=== PATIENT | female | born 1995 | race Caucasian/White ===

== ENCOUNTER 2019-03-29 17:13 | Emergency (ER) | payer OTHER ==
--- NOTE | 2019-03-29 18:18 | EDM.PDOC ---
ED HPI GENERAL MEDICAL PROBLEM - General Chief Complaint: Lower Extremity Injury/Pain Stated Complaint: WC HURT KNEE Time Seen by Provider: 03/29/19 18:10 Source of Information: Reports: Patient, RN Notes Reviewed History Limitations: Reports: No Limitations - History of Present Illness INITIAL COMMENTS - FREE TEXT/NARRATIVE: 23-year-old female presents emergency department today complaint of left knee pain, she does have a history history of ACL repair on that side she was at work doing some training injured herself with a twisting motion on the left knee now she has difficulty bearing weight. Pain is greatest on the medial aspect Left Knee Pain Score (Numeric/FACES): 6 - Related Data Allergies Allergy/AdvReac Type Severity Reaction Status Date / Time No Known Allergies Allergy Verified 03/29/19 18:04 Home Meds: Home Meds NK [No Known Home Meds] 03/29/19 [History] Past Medical History Psychiatric History: Reports: Depression - Past Surgical History HEENT Surgical History: Reports: Myringotomy w Tube(s), Other (See Below) Other HEENT Surgeries/Procedures: facial plastic surgery Musculoskeletal Surgical History: Reports: Arthroscopic Knee Social & Family History - Tobacco Use Smoking Status *Q: Never Smoker - Recreational Drug Use Recreational Drug Use: No Review of Systems - Review of Systems Review Of Systems: See Below Musculoskeletal: Reports: Joint Pain (Left knee) Skin: Reports: No Symptoms Neurological: Reports: No Symptoms ED EXAM, GENERAL - Physical Exam Exam: See Below Free Text/Narrative:: Examination of the left knee I don't appreciate any erythema or edema she is tender along the joint line medial aspect there is pain with valgus maneuver no pain with varus maneuver anterior drawer and Bebeto's are both negative Exam Limited By: No Limitations General Appearance: Alert, WD/WN, No Apparent Distress Respiratory/Chest: No Respiratory Distress Course - Vital Signs Last Recorded V/S: Last Vital Signs Temp 97.6 F 03/29/19 18:03 Pulse 80 03/29/19 18:03 Resp 22 H 03/29/19 18:03 BP 152/96 H 03/29/19 18:03 Pulse Ox 99 03/29/19 18:03 Departure - Departure Time of Disposition: 19:11 Disposition: Home, Self-Care 01 Condition: Fair Clinical Impression: Strain of left knee Qualifiers: Encounter type: initial encounter Qualified Code(s): S86.912A - Strain of unspecified muscle(s) and tendon(s) at lower leg level, left leg, initial encounter - Discharge Information Referrals: PCP,None [Primary Care Provider] - Forms: ED Department Discharge Additional Instructions: use ibuprofen for baseline pain control, use hydrocodone for breakthrough pain, Please followup with your primary care provider in 3-5 days if not better, please call return to the emergency department with worsening of symptoms. - Assessment/Plan Plan: Assessment Acuity = acute Site and laterality = left knee strain Etiology = secondary to twisting injury Manifestations = difficulty with ambulation Location of injury = work Lab values = x-ray was negative for any acute fracture Plan She is placed in an Vahid wrap and crutches consultation with orthopedics is set up for next week hydrocodone 5/325 one tab by mouth 3 times a day when necessary total #6 provided for pain control This note was dictated using [employer] voice recognition software please call with any questions on syntax or grammar.
--- NOTE | 2019-03-29 18:58 | CRLCR ---
INDICATION: Left knee pain. Technique: Three-view study left knee. FINDINGS: No evidence of fracture or dislocation. No bone or soft tissue abnormalities. Postop changes upper anterior tibia. No evidence of suprapatellar synovial effusion. IMPRESSION: Negative radiographic examination of the left knee. Dictated by Emely Oconnor MD @ Mar 29 2019 6:54PM Signed by Dr. Emely Oconnor @ Mar 29 2019 6:56PM
== END 2019-03-29 19:19 | disposition home or self-care (01) ==
LOC: JP.ED 17:13
DX: S86.912A Strain of unspecified muscle(s) and tendon(s) at lower leg level, left leg, initial encounter (principal); X50.1XXA Overexertion from prolonged static or awkward postures, initial encounter; Y92.89 Other specified places as the place of occurrence of the external cause; Y93.89 Activity, other specified; Y99.0 Civilian activity done for income or pay
CPT/HCPCS: 73562-LT; 99283; 99283-25

== ENCOUNTER 2019-04-21 13:07 | Day surgery (SDC) | payer OTHER ==
[~2019-04-21 13:07] MED LIST: Midazolam 1 MG/ML 2 ML SDV ONE; Propofol 200 MG/20 ML SDV ONE; fentaNYL 250 MCG/5 ML SDV ONE
[2019-04-21] MEDS ORDERED: Nozin Nasal Sanitizer NASBOTH ONE (13:15)
[2019-04-21] MEDS ORDERED: ceFAZolin 2 GM in Sodium Chloride 0.9% 50 ML IV ONE (13:45)
[2019-04-21] MEDS ORDERED: Lactated Ringers 1,000 ML IV SCH (13:45)
[2019-04-21] MEDS ORDERED: Bupivacaine 0.5% 30 ML SDV ONE (14:50)
[2019-04-21] MEDS ORDERED: Glycopyrrolate 0.2 MG/ML 5 ML MDV ONE (15:13)
[2019-04-21] MEDS ORDERED: Rocuronium 50 MG/5 ML Vial ONE (15:13)
[2019-04-21] MEDS ORDERED: Neostigmine Methylsulfate 1 MG/ML 5 ML Syringe ONE (15:13)
[2019-04-21] MEDS ORDERED: Dexamethasone 4 MG/ML SDV ONE (15:40)
[2019-04-21] MEDS ORDERED: Ondansetron 4 MG/2 ML SDV ONE (15:40)
[2019-04-21] MEDS ORDERED: fentaNYL 250 MCG/5 ML SDV ONE ×2 (15:57→16:50)
[2019-04-21] MEDS ORDERED: Lactated Ringers 1,000 ML ONE (16:25)
[2019-04-21] MEDS ORDERED: Labetalol 20 MG/4 ML Syringe ONE (17:14)
[2019-04-21] MEDS ORDERED: fentaNYL 100 MCG/2 ML SDV ONE (17:48)
[2019-04-21] MEDS ORDERED: Ketorolac 60 MG/2 ML SDV IM ONE (18:25)
[2019-04-21] MEDS ORDERED: Ketorolac 60 MG/2 ML SDV ONE (18:32)
[2019-04-21] MEDS ORDERED: Acetaminophen/oxyCODONE 325-5 MG Tab PO ONE (19:15)
--- NOTE | 2019-04-28 09:30 | OR ---
DATE OF PROCEDURE: 04/21/2019 SURGEON: Deshawn Gaspar MD PREOPERATIVE DIAGNOSAES: 1. Rupture of anterior cruciate ligament graft, left knee. 2. Possible chondral defect, lateral femoral condyle. POSTOPERATIVE DIAGNOSES: 1. Complete rupture of anterior cruciate ligament graft, left knee. 2. Chondral defect, lateral femoral condyle measuring approximately 4 x 5 mm. PROCEDURE: 1. Revision anterior cruciate ligament reconstruction using bone-patellar tendon-bone autograft and microfracture lateral femoral condyle. 2. Removal of hardware tibia, bone staple. ANESTHESIA: General. INDICATIONS: Phyllis is a 23-year-old female who had previously had an ACL graft and was doing well until a work-related injury from a jump from a height resulted in rupture of the previous graft. Examination and imaging are consistent with ACL deficiency. Also evident is an area of articular cartilage defect in the lateral femoral condyle. She now presents for revision of the ACL with autograft and evaluation of the chondral defect for a possible chondroplasty, microfracture and/or osteochondral grafting. Risks, benefits, potential complications of the procedure were discussed, and she agrees to proceed. DESCRIPTION OF PROCEDURE: After adequate general anesthesia was obtained, the patient was placed supine with a tourniquet about the left upper thigh. Left leg was prepped and draped in a sterile fashion. An incision was made from the inferior pole of the patella down over the tibial tubercle and extended distally to incorporate her previous incision. Dissection carried out over the proximal tibial metaphysis in the region of the previous tibial tunnel and bone staple. Attempt was made to localize the staple for removal. It became apparent that the hardware had become overgrown with bone and it could not be palpated or located by further exploration. The C-arm fluoroscope was brought in and used to locate the staple. This was uncovered using a combination of osteotomes. This was then loosened and removed. Attention was then turned to the knee where capsular incisions were made inside of the skin incision. The scope was placed through the anterolateral portal and the knee was inspected. This revealed intact articular cartilage in the patellofemoral joint. Medial femoral condyle was intact and medial meniscus was intact. Intercondylar notch revealed complete rupture of the previous graft from its femoral insertion. Shaver was introduced and used to debride the graft. Tunnels were evaluated. The posterior wall was present in the femoral tunnel. Evaluation of the lateral compartment revealed intact meniscus and a chondral defect with complete loss of articular cartilage over a small area on the anterior edge of the weightbearing surface measuring approximately 4 x 5 mm with a small extension off this of approximately 2 x 2 mm. The shaver was used to debride the edges of this of any loose articular pieces. Attention was then returned to the intercondylar notch. She was noted to have a very narrow A-frame intercondylar notch. Notchplasty was performed using combination of curette, shaver, and a bur. Tibial drill guide was then secured in place and a guide pin was advanced through the guide just anterior to the tibial spine. A 10 mm reamer was then placed over this establishing the tibial tunnel. A longer guide pin was then advanced through the tibial tunnel across the notch and into the previous femoral tunnel, guiding it slightly more lateral. This was then drilled through the femur and brought out the skin anterolaterally. A reamer was placed over this and drilled to a depth of 30 mm. Previous graft soft tissues were debrided with a shaver. Prior to drilling the femoral tunnels, a bone-patellar tendon-bone autograft was harvested from the central third of the patella measuring 10-11 mm in width. This was fashioned on the back table to fit through a 10 mm spacer for the femoral side and an 11 mm spacer on the tibial side. Drill holes were placed through the bone plugs for traction sutures. The graft was kept moist on the back table as tunnel preparation was completed. After placement of the guide pin and drilling of the femoral tunnel, a Mitek Rigidfix guide was placed over the guide pin and placed to a depth of 30 mm in the femoral tunnel. Two lateral cannulas were drilled into the lateral femur for locking pins. The guide was then removed. The graft was then pulled through the tibial tunnel and into the femoral tunnel to a depth of 30 mm. Drill was then placed through the lateral cannulas and locking pins were secured in position. Cannulas were removed. Attention was placed on the graft, which was taken then through several cycles of flexion and extension with pre-tensioning. A guide pin was placed into the femoral tunnel. Tibia was notched and tap was utilized. A 10 x 30 mm logroll interference screw was then chosen. The knee was flexed. The posterior drawer applied. The graft was tensioned and the interference screw was then placed into the tunnel with excellent purchase. This was placed flush with the tibial surface. Final position was confirmed arthroscopically with good tension. There was no evidence of impingement in the notch. All loose fragments were removed. Bone awls were then used to perform a microfracture of the articular cartilage defect in the lateral femoral condyle. A portion of the bone plug on the tibial side was protruding beyond the level of the tibial metaphysis and a rongeur was used to debride this. Portions of the reaming and bone from the bone plugs were then utilized to bone graft the tibial and patellar troughs. The paratenon was then closed over the graft with 0 Vicryl in a running fashion. Skin was then closed with 0 Vicryl, 2-0 Vicryl, and a running 3-0 Monocryl. Steri-Strips were applied. At the finish of the procedure, good tension was noted on the graft, Bebeto and drawer were negative, and her pivot shift had been corrected. Sterile dressing was then applied. A knee brace was applied, locked in extension. The patient tolerated the procedure well. There were no complications. She was taken from the operating room in stable condition. Deshawn Gapsar MD /[id number]
== END 2019-04-21 21:15 | disposition home or self-care (01) ==
LOC: JP.SDS 13:07
PROVIDERS: ATTEND Specialist
DX: S83.512A Sprain of anterior cruciate ligament of left knee, initial encounter (principal); M94.8X6 Other specified disorders of cartilage, lower leg; Y30.XXXA Falling, jumping or pushed from a high place, undetermined intent, initial encounter; Y93.39 Activity, other involving climbing, rappelling and jumping off; Y99.0 Civilian activity done for income or pay; F32.9 Major depressive disorder, single episode, unspecified
CPT/HCPCS: 20680; 29879; 29888; 36415; 76000; 80048; 81025; 85027; A9270; C1713; J0690; J1100; J1885; J2250; J2405; J2704; J2710; J3010; J3490; J7050; J7120

== ENCOUNTER 2020-01-26 19:52 | Emergency (ER) | payer OTHER, MEDICAID ==
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
== END 2020-01-26 20:50 | disposition home or self-care (01) ==
LOC: JP.ED 19:52
DX: Z77.098 Contact with and (suspected) exposure to other hazardous, chiefly nonmedicinal, chemicals (principal)
CPT/HCPCS: 99283

== ENCOUNTER 2021-04-02 15:23 | Emergency (ER) | payer OTHER, BC ==
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
--- NOTE | 2021-04-02 16:39 | CRLCR ---
For Patients: As a result of the Cures Act, medical imaging exams and procedure reports are released immediately into your electronic medical record. You may view this report before your referring provider. If you have questions, please contact your health care provider. INDICATION: Thumb injury. TECHNIQUE: Three views of the left thumb. FINDINGS: No bone, joint, or soft tissue abnormality in the left thumb. Normal exam. Dictated by Mani Dumont MD @ 04/02/2021 4:38:43 PM Dictated by: Mani Dumont MD @ 04/02/2021 16:38:50 (Electronically Signed)
== END 2021-04-02 16:44 | disposition home or self-care (01) ==
LOC: JP.ED 15:23
DX: S63.642A Sprain of metacarpophalangeal joint of left thumb, initial encounter (principal); Y04.0XXA Assault by unarmed brawl or fight, initial encounter
CPT/HCPCS: 73140-FA; 99283-25

== ENCOUNTER 2021-10-30 22:55 | Emergency (ER) | payer BC, MEDICAID, OTHER ==
[2021-10-30 23:50] LABS: CORONAVIRUS COVID-19 NAA POSITIVE (NEGATIVE)
== END 2021-10-31 00:07 | disposition home or self-care (01) ==
LOC: JP.ED 22:55
DX: U07.1 COVID-19 (principal); R03.0 Elevated blood-pressure reading, without diagnosis of hypertension
CPT/HCPCS: 0241U; 87081; 87880; 99283